=== PATIENT | female | born 1955 | race Caucasian/White ===

== ENCOUNTER 2018-12-16 15:03 | Emergency (ER) | payer BC ==
[~2018-12-16] VITALS: Ht 170.2 cm; Wt 73.6 kg
[2018-12-16 15:11] VITALS: BP 137/82
--- NOTE | 2018-12-16 15:26 | NUR ---
[employer] tech at bedside.
[2018-12-16] MEDS ORDERED: NAPR-56 PO (15:37)
== END 2018-12-16 15:48 | disposition home or self-care (01) ==
LOC: ER 15:04
DX: M25.572 Pain in left ankle and joints of left foot (principal); R22.42 Localized swelling, mass and lump, left lower limb; Z98.890 Other specified postprocedural states; Z88.2 Allergy status to sulfonamides; Z88.5 Allergy status to narcotic agent; Z79.899 Other long term (current) drug therapy
CPT/HCPCS: 93971; 99284